=== PATIENT | female | born 1985 | race Caucasian/White ===

== ENCOUNTER 2016-06-23 20:17 | Emergency (ER) | payer OTHER ==
[~2016-06-23 20:17] MED LIST: ACETAMINOPHEN PO; AMOXICILLIN500 M1 PO; IBUPROFEN PO; MULTIVIT-FLUORID1 M1 PO; VICODIN 5/500 T1 TAB PO; ZANTAC PO
== END 2016-06-23 21:16 | disposition home or self-care (01) ==
LOC: SED 20:17
DX: H65.03 Acute serous otitis media, bilateral (principal); J03.90 Acute tonsillitis, unspecified; Z87.891 Personal history of nicotine dependence; Z98.51 Tubal ligation status
CPT/HCPCS: 36415; 86308; 87651; 99283